=== PATIENT | male | born 1990 | race Hispanic/Latino ===

== ENCOUNTER 2017-05-10 11:29 | Emergency (ER) | payer SELFPAY ==
[2017-05-10 11:33] VITALS: BMI 33.2
[2017-05-10 11:34] VITALS: TEMP 98.5; O2SAT 98
--- NOTE | 2017-05-10 12:20 | ED PDOC ---
HPI: Back Chief Complaint (Provider): back pain History Per: Patient History/Exam Limitations: no limitations Onset/Duration Of Symptoms: Days (x 1) Additional Complaint(s): Jony Ferraro is a 26 year old male, with no previous medical history, who presents to the ED with complaints of worsening back pain ongoing since yesterday while he was playing basketball. Patient reports feeling immediate pain in his lower back after he bent down to guard a player. He denies any numbness, tingling, blunt trauma, hematuria, abdominal pain or urinary/fecal incontinence. Patient states pain is worse with walking or sitting upright and is alleviated by resting supine. He reports taking ibuprofen last night with no relief and denies taking any medications today. PMD: none provided <Rob Barney - Last Filed: 05/10/17 19:10> <Selvin Russo - Last Filed: 05/15/17 15:48> Time Seen by Provider: 05/10/17 11:38 Chief Complaint (Nursing): Back Pain Past Medical History Reviewed: Historical Data, Nursing Documentation, Vital Signs Vital Signs: Last Vital Signs Temp 98.5 F 05/10/17 11:34 Pulse 97 H 05/10/17 11:34 Resp 20 05/10/17 11:34 BP 156/90 H 05/10/17 11:34 Pulse Ox 98 05/10/17 11:34 - Medical History PMH: No Chronic Diseases - Family History Family History: States: No Known Family Hx <Rob Barney - Last Filed: 05/10/17 19:10> Vital Signs: Last Vital Signs Temp 98.5 F 05/10/17 11:34 Pulse 88 05/10/17 14:45 Resp 18 05/10/17 14:45 BP 138/78 05/10/17 14:45 Pulse Ox 98 05/10/17 19:11 <Selvin Russo - Last Filed: 05/15/17 15:48> - Home Medications Home Medications: Ambulatory Orders Medication Instructions Recorded Cyclobenzaprine [Cyclobenzaprine 10 mg PO Q8 PRN #30 tab 05/10/17 HCl] Meloxicam [Mobic] 15 mg PO DAILY PRN #15 tablet 05/10/17 - Allergies Allergies/Adverse Reactions: Allergies Allergy/AdvReac Type Severity Reaction Status Date / Time cephalexin [From Keflex] Allergy unknown Verified 05/10/17 11:46 codeine Allergy unknown Verified 05/10/17 11:46 Penicillins Allergy unknown Verified 05/10/17 11:46 Sulfa (Sulfonamide Allergy unknown Verified 05/10/17 11:46 Antibiotics) Review of Systems ROS Statement: Except As Marked, All Systems Reviewed And Found Negative Gastrointestinal: Negative for: Abdominal Pain Genitourinary Male: Negative for: Incontinence, Hematuria Musculoskeletal: Positive for: Back Pain Neurological: Negative for: Numbness, Other (tingling ) <Rob Barney E - Last Filed: 05/10/17 19:10> Physical Exam - Reviewed Nursing Documentation Reviewed: Yes Vital Signs Reviewed: Yes - Physical Exam Appears: Positive for: Well, Non-toxic, No Acute Distress Head Exam: Positive for: ATRAUMATIC, NORMAL INSPECTION, NORMOCEPHALIC Skin: Positive for: Normal Color, Warm, Dry. Negative for: Rash Eye Exam: Positive for: EOMI, Normal appearance, PERRL ENT: Positive for: Normal ENT Inspection Neck: Positive for: Normal, Painless ROM, Supple Cardiovascular/Chest: Positive for: Regular Rate, Rhythm Respiratory: Positive for: CNT, Normal Breath Sounds Gastrointestinal/Abdominal: Positive for: Normal Exam, Bowel Sounds, Soft. Negative for: Tenderness Back: Positive for: Muscle Spasm (bilateral parathoracic and paralumbar ). Negative for: L CVA Tenderness, R CVA Tenderness, Vertebral Tenderness, Decreased ROM Extremity: Positive for: Normal ROM. Negative for: Tenderness, Pedal Edema, Deformity, Swelling Neurologic/Psych: Positive for: Alert, Oriented. Negative for: Motor/Sensory Deficits <Rob Barney E - Last Filed: 05/10/17 19:10> - ECG O2 Sat by Pulse Oximetry: 98 (RA) Pulse Ox Interpretation: Normal - Radiology X-Ray: Interpreted by Me (LS spine, thoracic spine x-ray) X-Ray Interpretation: No Acute Disease <Rob Barney Darius - Last Filed: 05/10/17 19:10> Medical Decision Making Medical Decision Making: Initial Impression: Back Pain Initial Plan: * x-ray dorsal thoracic * x-ray lumbar spine * Flexeril 10 mg PO * Toradol 15 mg IM * reevaluation Scribe Attestation: Documented by Gabby Pratt, acting as a scribe for Rob Barney PA-C. Provider Scribe Attestation: All medical record entries made by the Scribe were at my direction and personally dictated by me. I have reviewed the chart and agree that the record accurately reflects my personal performance of the history, physical exam, medical decision making, and the department course for this patient. I have also personally directed, reviewed, and agree with the discharge instructions and disposition. <Rob Barney - Last Filed: 05/10/17 19:10> Disposition - Patient ED Disposition Is Patient to be Admitted: No - Disposition Disposition: Routine/Home Disposition Time: 14:30 <Rob Barney - Last Filed: 05/10/17 19:10> <Selvin Russo F - Last Filed: 05/15/17 15:48> - Clinical Impression Clinical Impression: Back pain - Disposition Referrals: [facility] [Outside] Condition: STABLE Prescriptions: Cyclobenzaprine [Cyclobenzaprine HCl] 10 mg PO Q8 PRN #30 tab PRN Reason: Muscle Spasm Meloxicam [Mobic] 15 mg PO DAILY PRN #15 tablet PRN Reason: pain Instructions: Back Pain (ED) Forms: [employer] (Ugandan) Print Language: ISRAELI - PA / [employer] / Resident Statement / has reviewed & agrees with the documentation as recorded. / has examined the patient and agrees with the treatment plan. <Selvin Russo - Last Filed: 05/15/17 15:48>
--- NOTE | 2017-05-10 12:57 | RAD ---
HISTORY: pain COMPARISON: No prior. FINDINGS: BONES: Alignment maintained. No fracture. DISC SPACES: Normal. SOFT TISSUES: Normal. OTHER FINDINGS: None. IMPRESSION: Normal radiographs of the thoracic spine.
[2017-05-10 14:46] VITALS: BP 138/78; PULSE 88; RESP 18
--- NOTE | 2017-05-10 16:06 | RAD ---
PROCEDURE: Radiographs of the Lumbar Spine. HISTORY: pain COMPARISON: No prior. FINDINGS: BONES: Normal alignment. No listhesis. No fracture. DISC SPACES: Unremarkable. OTHER FINDINGS: None. IMPRESSION: Unremarkable radiographs of the lumbar spine.
== END 2017-05-10 14:48 | disposition home or self-care (01) ==
LOC: H.ER 11:29
DX: M54.9 Dorsalgia, unspecified (principal)
CPT/HCPCS: 72070; 72100; 96372; 99282; J1885